=== PATIENT | male | born 1965 | race Caucasian/White ===

== ENCOUNTER 2017-06-30 11:51 | Emergency (ER) | payer OTHER ==
[~2017-06-30] VITALS: Ht 175.2 cm; Wt 90.7 kg
[~2017-06-30 11:51] MED LIST: BACLOFEN20 MG PO; CILOXAN 5 ML5 ML OT; CIPROFLOXACIN500 MG PO; DICLOFENAC POTA50 MG PO; DIFLUCAN100 MG PO; GABAPENTIN400 MG PO; HYDR25T PO; HYDROCODONE BIT1 T11 PO; PEPCID20 MG PO; PRILOSEC20 MG PO; PROPRANOLOL10 MG PO
[2017-06-30] MEDS ORDERED: OMNICEF300 MG PO (12:31)
== END 2017-06-30 12:48 | disposition home or self-care (01) ==
LOC: ED 11:51
DX: H66.92 Otitis media, unspecified, left ear (principal); R03.0 Elevated blood-pressure reading, without diagnosis of hypertension; F17.200 Nicotine dependence, unspecified, uncomplicated; F10.10 Alcohol abuse, uncomplicated; Z79.899 Other long term (current) drug therapy

== ENCOUNTER → 2017-07-10 | Outpatient (CLI) | payer OTHER ==
[~2017-07-10] MED LIST changes: +OMNICEF300 MG PO
== END | disposition home or self-care (01) ==
LOC: RESCLI 03:12
DX: H66.012 Acute suppurative otitis media with spontaneous rupture of ear drum, left ear (principal); B18.2 Chronic viral hepatitis C; I10 Essential (primary) hypertension; K21.9 Gastro-esophageal reflux disease without esophagitis; Z72.0 Tobacco use; Z71.6 Tobacco abuse counseling

== ENCOUNTER 2018-12-03 11:56 | Emergency (ER) | payer SELFPAY ==
[~2018-12-03] VITALS: Ht 175.2 cm; Wt 93.0 kg
[~2018-12-03 11:56] MED LIST changes: +DOXYCYCLINE100 M3 PO
[2018-12-03] MEDS ORDERED: Motrin,Rufen800 MG PO (14:01)
== END 2018-12-03 14:14 | disposition home or self-care (01) ==
LOC: ED 11:56
DX: S46.912A Strain of unspecified muscle, fascia and tendon at shoulder and upper arm level, left arm, initial encounter (principal); S00.03XA Contusion of scalp, initial encounter; Z79.2 Long term (current) use of antibiotics; Z79.899 Other long term (current) drug therapy; W13.8XXA Fall from, out of or through other building or structure, initial encounter; Y93.89 Activity, other specified; Y92.89 Other specified places as the place of occurrence of the external cause; Y99.8 Other external cause status

== ENCOUNTER 2024-01-09 21:18 | Emergency (ER) | payer OTHER, MEDICAID ==
[~2024-01-09 21:18] MED LIST changes: +Motrin,Rufen800 MG PO
== END 2024-01-09 22:30 | disposition home or self-care (01) ==
LOC: ED 21:18
DX: M25.512 Pain in left shoulder (principal); Z53.21 Procedure and treatment not carried out due to patient leaving prior to being seen by health care provider